=== PATIENT | male | born 1965 | race African-American/Black ===

== ENCOUNTER 2016-04-30 20:27 | Inpatient (IN) | payer SELFPAY ==
--- NOTE | ~2016-04-30 | DS ---
Discharge Summary [facility] [address] [place]. [address] NAME: SHAYNA ROGERS : 61 STATUS : ADM IN [facility]#: [id number] AGE: 50 ADM/REG DATE : 04/30/16 MR#: [id number] REPORT SERV DATE: 05/05/16 DICTATED BY: ALBAN STOLL DATE: 05/05/16 REPORT STATUS : Draft TRANSCRIBED BY: MODL DATE: 05/05/16 ADMISSION DATE: 04/30/2016 DISCHARGE DATE: PCP: [facility]. FINAL DIAGNOSES: 1. Acute gastroenteritis, resolved. 2. Dehydration, improved. 3. Status post hypokalemia. 4. Status post hypophosphatemia. 5. Hypertension, status post orthostasis. 6. Folate-deficiency anemia. 7. Gout. 8. Morbid obesity. DIAGNOSTIC EXAMS: Chest x-ray showing no acute cardiopulmonary abnormality, stable mild elevation of the right hemidiaphragm. CAT scan of the abdomen and pelvis showing no acute abdominal or pelvic pathology. No imaging explanation for the reported vomiting. No bowel obstruction pattern. Nonobstructing bilateral nephrolithiasis. Small bladder calculus. Normal appendix, right lower quadrant. Stable severe degenerative disc disease, L4-L5. HOSPITAL COURSE: Please refer to the H and P done by Dr. Marcelo dated on 04/30/2016. Briefly, this is a 50-year-old male who comes in for weakness. The patient was recently discharged with gout and C. diff colitis. The patient lives by himself but has financial problem. His friend or sister had turned on his power but afterwards he did not pay for the bill and power ran out. Two days ago, the sister visited him and the house was cold, old food in the fridge, and the patient was having nausea and vomiting and increasing weakness. The patient was then brought to the emergency room, admitted by Dr. Marcelo and he was found to be dehydrated and was given some fluids and we checked his stool and that was negative for any C. diff. We believe that he probably ate spoiled food and caused him to have an acute gastroenteritis and he slowly improved with hydration and correction of his multiple electrolyte abnormalities. The patient was initially orthostatic that improved with hydration, and we have to even increase his Norvasc to control his blood pressure. We got PT involved and they recommended the patient to go to rehab. We tried [facility] but because he does not have any money or insurance, we were hoping that they would jami him, but they were not able to. We are going to try [facility] but the chances of which is poor and if that does not happen then the patient will need to go home with Home Health and Home PT. The patient will be following up with the [facility] in one to two weeks and he will be on the following medications: Allopurinol 100 mg a day, Norvasc 10 mg a day, folic acid 1 mg a day, multivitamin once a day. He was advised to be careful with what he eats. He said that he is going to be able to find some assistance. The watch caser is working with him as well to help him out financially but there is only so much that we can do but we will try. If he does not turn his life around chances of him coming back to the hospital is quite high. This has been explained to him. He understood the plan. Discharge Summary [address] [address] NAME: SHAYNA ROGERS : 61 STATUS : ADM IN PAT#: [id number] AGE: 50 ADM/REG DATE : 04/30/16 MR#: [id number] REPORT SERV DATE: 05/05/16 DICTATED BY: ALBAN STOLL. DATE: 05/05/16 REPORT STATUS : Draft TRANSCRIBED BY: KAVEH DATE: 05/05/16 TIME SPENT: 35 minutes. KARTHIK/KAVEH Alban Stoll M.D. / [id number] CC: Alban Stoll M.D.
--- NOTE | ~2016-04-30 | HP ---
History And Physical [place] [id number] [facility] [place]. [address] NAME: SHAYNA VILLARREAL : 61 STATUS : ADM [facility] PAT#: [id number] AGE: 50 ADM/REG DATE : 04/30/16 MR#: [id number] REPORT SERV DATE: 05/01/16 DICTATED BY: SAWYER SWAIN DATE: 05/01/16 REPORT STATUS : Draft TRANSCRIBED BY: MODAyana DATE: 05/01/16 DATE OF ADMISSION: 04/30/2016 CHIEF COMPLAINT: Generalized weakness nausea, vomiting, and chills. He also had diarrhea. HISTORY OF PRESENT ILLNESS: This is a 50-year-old male with a history of recent Clostridium difficile colitis, who presents to the emergency room at [facility] with the above-mentioned complaint. History is obtained from the patient, his sister who was at bedside, and reviewing data available on the [place] system. According to Mr. Villarreal and the family, he had been doing well since his discharge from this hospital after his admission for Clostridium difficile colitis and diarrhea. Since then, he has had one or two days of intermittent diarrhea which according to him was nothing like what it was when he had C. diff colitis. He had the last one about a week or so ago. His sister had called him about two days ago, and he sounded different, and she went to find him at home where he had no electricity, the house was ice cold with no heat. He had old food in the fridge which was not running due to no power. Apparently, there were some financial issue with the electric company. She also found that he had nausea with vomiting. He had not been able to keep anything down for the last couple of days, and decided to bring him to the emergency room to be evaluated. In the emergency room, initial workup revealed he continued to have nausea and vomiting requiring intravenous antiemetics. He had urinary tract infection with severe electrolyte abnormalities as well and met criteria for sepsis. He also had orthostatic hypotension. Hospitalist Service is asked to admit him for further evaluation and treatment. At the time of my evaluation, Mr. Villarreal denied any chest pain, palpitations, or orthopnea. He had no cough, hemoptysis, night sweats, or weight loss. He denied any recent falls, loss of consciousness. He did have some chills in the last 24-36 hours, but has not recorded any temperatures. He did have nausea, vomiting which was essentially basically what he ate or bilious. No history of hematemesis, hematochezia, or hematuria. He did have one or two episodes of diarrhea which appeared to be not related to all of this, similar to what he had when he had previous colitis. No other history of recent travel or exposures other than those mentioned above at least since his discharge from here. PAST MEDICAL HISTORY: Significant for history of recent Clostridium difficile colitis and admission as an inpatient to treat it. SOCIAL HISTORY: He does not smoke, drink, or use recreational drugs. FAMILY HISTORY: Noncontributory. MEDICATIONS: At home were reviewed by me in the chart today and reordered by me. REVIEW OF SYSTEMS: As in history of present illness. All other systems were reviewed in detail and are quite History And Physical [address] [place] [place]. [address] NAME: SHAYNA VILLARREAL : 61 STATUS : ADM [facility] PAT#: [id number] AGE: 50 ADM/REG DATE : 04/30/16 MR#: [id number] REPORT SERV DATE: 05/01/16 DICTATED BY: SAWYER SWAIN DATE: 05/01/16 REPORT STATUS : Draft TRANSCRIBED BY: KAVEH DATE: 05/01/16 unremarkable. PHYSICAL EXAMINATION: GENERAL: This is a pleasant 50-year-old, male, who is a little sketchy on his history but was able to recall most of it. He is alert, awake, oriented to time, place, and person. HEENT: Pupils are equal, reacting to light and accommodating. External ocular muscles are intact. Membranes are moist and pink. Sclerae are nonicteric. NECK: Supple with no jugular venous distention, lymphadenopathy, or thyromegaly. LUNGS: Clear to auscultation with no wheezes, rubs, or crackles. HEART: Heart sounds were regular with no murmurs, rubs, or gallops. ABDOMEN: Soft, nontender. Bowel sounds are present. EXTREMITIES: Showed no cyanosis, clubbing, or edema. NEUROLOGIC: Grossly intact. No focal sensory or motor deficits. Higher functions appeared intact. Gait was not examined. VITAL SIGNS: His vital signs today showed temperature of 97.5, pulse 99, respirations 18 a minute, and blood pressure upon arrival was 138/94, oxygen saturations were 100% on 2-3 L via nasal cannula. LABORATORY DATA: Reviewed on the [place] system showed a sodium of 139, potassium 2.8, chloride 98, and CO2 of 23, BUN was 6 with a creatinine of 1.26 and GFR was 76. His glucose was 103. His albumin was 2.5, lactate was 4.4. CBC showed a white blood cell count of 8100, hemoglobin was 11.6, hematocrit 36.4 and platelet count was 384,000. Influenza A and B were negative today, and urinalysis showed trace ketones, large leukocyte esterase, nitrite was negative with 163 WBCs and occasional bacteria. Films of the CT scan of his abdomen pelvis were reviewed by me on the PACS today and interpreted by me. Official radiology comments were also reviewed. There is no acute pathology. There are no obstructions or other causes for vomiting and diarrhea at this point. A 12-lead EKG done in the emergency room was reviewed and interpreted by me. There is normal sinus rhythm with a rate of [address] changes. IMPRESSION: 1. Generalized weakness. 2. Nausea and vomiting. 3. Urinary tract infection. 4. Sepsis. 5. Electrolyte abnormalities. 6. Orthostatic hypotension. 7. Volume depletion. 8. Recent Clostridium difficile colitis. 9. Gout. PLAN: We will admit Mr. Villarreal to the Hospitalist Service for a 24-hour observation period. We will aggressively replete fluids, obtain cultures, and start him on empiric IV History And Physical [address] [address] NAME: SHAYNA VILLARREAL : 61 STATUS : ADM [facility] PAT#: [id number] AGE: 50 ADM/REG DATE : 04/30/16 MR#: [id number] REPORT SERV DATE: 05/01/16 DICTATED BY: SAWYER SWAIN DATE: 05/01/16 REPORT STATUS : Draft TRANSCRIBED BY: KAVEH DATE: 05/01/16 antibiotics for his urinary tract infection and sepsis. We will check procalcitonin level. We will replace his electrolytes and follow this with chemistry repeated in the morning. We will also repeat a CBC and place him on electrolyte replacement protocol. For his sepsis, we will again, go ahead and replace volume per protocol and IV antibiotics. Please see orders for details. He will be on unfractionated heparin for DVT prophylaxis while here as well. I have discussed the above plans with the patient. His questions were answered, and he is agreeable to the above recommendations. Hospitalist Service will be following him during his stay here. /KAVEH Sawyer Swain M.D. / [id number] CC: Surya Castro M.D.
[~2016-04-30 20:27] MED LIST: CORICIDIN HBP PO; FOLIC PO; MULTIVIT/MIN PO; NORV5 PO; P10 PO; ZINC OTC PO; vancomycin PO
[2016-04-30 20:54] LABS: BASOPHILS 0.1 %; BASOPHILS ABSOLUTE 0.01 10/3/uL (0.0-0.16); EOSINOPHILS 0 %; ER CBC TAT 0 Hrs 07 Mins; IMMATURE GRANULOCYTES 0.5 %; IMMATURE GRANULOCYTES ABSOLUTE 0.04 10/3/uL (0.0-0.11); LYMPHOCYTES 15.7 %; LYMPHOCYTES ABSOLUTE 1.27 10/3/uL (0.67-4.30); MEAN CORPUSCULAR VOLUME 87.7 fL (80-100); MEAN PLATELET VOLUME 9.7 fL (9.2-13.0); MONOCYTES 7.6 %; MONOCYTES ABSOLUTE 0.62 10/3/uL (0.21-1.20); NEUTROPHILS 76.1 %; NEUTROPHILS ABSOLUTE 6.17 10/3/uL (2.02-8.40); RBC DISTRIBUTION WIDTH 15.1 % (12.0-16.0); WHITE BLOOD CELLS 8.1 10/3/uL (4.5-10.5)
[2016-04-30 20:57] LABS: HEMATOCRIT 36.4 % (40.0-51.0); HEMOGLOBIN 11.6 g/dL (13.6-17.8); MANUAL DIFF NO %; MEAN CORPUS HGB CONC 31.9 g/dL (32.0-36.0); PLATELET COUNT 384 10/3/uL (150-400); RED CELL COUNT 4.15 10/6/uL (4.7-6.1)
[2016-04-30 21:02] LABS: INTERNATIONAL NORMAL RATI 1.1 UNITS (-); PARTIAL THROMBO TIME 28.6 SEC (22.5-37.2); PROTIME (NOT ORD) 14.3 SEC (12.0-14.5)
[2016-04-30 21:10] LABS: CREATININE 1.26 MG/DL (0.70-1.30); TOTAL BILIRUBIN 0.4 MG/DL (0-1.2)
[2016-04-30 21:10] LABS: INFLUENZA A SCREEN NEGATIVE (NEGATIVE); INFLUENZA B SCREEN NEGATIVE (NEGATIVE); LACTATE 4.4 MMOL/L (0.3-2.4)
[2016-04-30 21:11] LABS: A/G RATIO 0.4 (0.7-1.9); ALBUMIN 2.5 G/DL (3.5-5.0); CALCIUM, SERUM 9.4 MG/DL (8.5-10.4); GLOBULIN 5.6 G/DL (2.5-4.1); POTASSIUM, SERUM 2.8 MMOL/L (3.5-5.3); TOTAL PROTEIN 8.1 G/DL (6.0-8.5); TROPONIN I 0.02 NG/ML (<0.05)
[2016-04-30 21:37] LABS: ASCORBIC ACID (UR NOT ORDER) NEG (NEG); BILIRUBIN, URINE NEGATIVE (NEG); ER URINALYSIS TAT 0 Hrs 16 Mins; KETONE, URINE TRACE MG/DL (NEG); LEUKOCYTE ESTERASE(NOT OR LARGE (NEG); NITRITE (URINE) NEG (NEG); WBC (NOT ORDERED) (RFLEX) 163 (0-5)
[2016-04-30 21:37] LABS: MEMORIAL CHEMISTRY 0.05
[2016-04-30] MEDS ORDERED: CENTRUM PO (21:40)
[2016-04-30] MEDS ORDERED: FOLIC PO (21:40)
[2016-04-30] MEDS ORDERED: NORV10 PO (21:40)
[2016-05-01 02:27] LABS: BASOPHILS 0.1 %; BASOPHILS ABSOLUTE 0.01 10/3/uL (0.0-0.16); EOSINOPHILS 0 %; HEMATOCRIT 34.3 % (40.0-51.0); HEMOGLOBIN 10.9 g/dL (13.6-17.8); IMMATURE GRANULOCYTES 0.4 %; IMMATURE GRANULOCYTES ABSOLUTE 0.04 10/3/uL (0.0-0.11); LYMPHOCYTES 22.9 %; LYMPHOCYTES ABSOLUTE 2.35 10/3/uL (0.67-4.30); MEAN CORPUS HGB CONC 31.8 g/dL (32.0-36.0); MEAN CORPUSCULAR HEMOGLOB 27.9 pg (26.0-34.0); MEAN CORPUSCULAR VOLUME 87.7 fL (80-100); MONOCYTES 7.7 %; MONOCYTES ABSOLUTE 0.79 10/3/uL (0.21-1.20); NEUTROPHILS 68.9 %; NEUTROPHILS ABSOLUTE 7.07 10/3/uL (2.02-8.40); PLATELET COUNT 372 10/3/uL (150-400); RBC DISTRIBUTION WIDTH 15.3 % (12.0-16.0); RED CELL COUNT 3.91 10/6/uL (4.7-6.1); WHITE BLOOD CELLS 10.3 10/3/uL (4.5-10.5)
[2016-05-01 02:29] LABS: MANUAL DIFF NO %
[2016-05-01 02:47] LABS: BUN (BLOOD UREA NITROGEN) 6 MG/DL (6-23); CALCIUM, SERUM 8.7 MG/DL (8.5-10.4); CHLORIDE, SERUM 97 MMOL/L (96-112); CO2 (CARBON DIOXIDE) 27 MMOL/L (24-34); CREATININE 0.95 MG/DL (0.70-1.30); GFR AFRICAN AMERICAN 106 ML/MIN (>=60); GFR NON AFRICAN AMERICAN 92 ML/MIN (>=60); PHOSPHORUS, SERUM 1.8 MG/DL (2.5-4.5); SODIUM, SERUM 139 MMOL/L (135-148)
[2016-05-01 02:52] LABS: GLUCOSE, SERUM 74 MG/DL (60-99)
[2016-05-02 05:34] LABS: BASOPHILS 0.1 %; BASOPHILS ABSOLUTE 0.01 10/3/uL (0.0-0.16); EOSINOPHILS 0.4 %; EOSINOPHILS ABSOLUTE 0.03 10/3/uL (0.0-0.53); HEMOGLOBIN 9.1 g/dL (13.6-17.8); IMMATURE GRANULOCYTES 0.3 %; IMMATURE GRANULOCYTES ABSOLUTE 0.02 10/3/uL (0.0-0.11); LYMPHOCYTES 31.8 %; MEAN CORPUS HGB CONC 32.2 g/dL (32.0-36.0); MEAN CORPUSCULAR VOLUME 87.1 fL (80-100); MEAN PLATELET VOLUME 9.9 fL (9.2-13.0); MONOCYTES 12.5 %; MONOCYTES ABSOLUTE 0.94 10/3/uL (0.21-1.20); NEUTROPHILS 54.9 %; NEUTROPHILS ABSOLUTE 4.14 10/3/uL (2.02-8.40); PLATELET COUNT 294 10/3/uL (150-400); RBC DISTRIBUTION WIDTH 15.6 % (12.0-16.0); RED CELL COUNT 3.25 10/6/uL (4.7-6.1); WHITE BLOOD CELLS 7.5 10/3/uL (4.5-10.5)
[2016-05-02 05:42] LABS: HEMATOCRIT 28.3 % (40.0-51.0); MANUAL DIFF NO %
[2016-05-02 05:54] LABS: BUN (BLOOD UREA NITROGEN) 3 MG/DL (6-23); CALCIUM, SERUM 8.4 MG/DL (8.5-10.4); CHLORIDE, SERUM 103 MMOL/L (96-112); CO2 (CARBON DIOXIDE) 27 MMOL/L (24-34); CREATININE 0.83 MG/DL (0.70-1.30); GFR AFRICAN AMERICAN 117 ML/MIN (>=60); GFR NON AFRICAN AMERICAN 101 ML/MIN (>=60); GLUCOSE, SERUM 88 MG/DL (60-99); PHOSPHORUS, SERUM 1.4 MG/DL (2.5-4.5); SODIUM, SERUM 140 MMOL/L (135-148)
[2016-05-02 05:57] LABS: ALBUMIN 1.9 G/DL (3.5-5.0); POTASSIUM, SERUM 2.9 MMOL/L (3.5-5.3)
[2016-05-02 08:23] LABS: POTASSIUM, SERUM 3.4 MMOL/L (3.5-5.3)
[2016-05-03 06:58] LABS: BASOPHILS 0.1 %; BASOPHILS ABSOLUTE 0.01 10/3/uL (0.0-0.16); EOSINOPHILS 0.7 %; EOSINOPHILS ABSOLUTE 0.05 10/3/uL (0.0-0.53); HEMATOCRIT 26.8 % (40.0-51.0); HEMOGLOBIN 8.5 g/dL (13.6-17.8); IMMATURE GRANULOCYTES 0.3 %; IMMATURE GRANULOCYTES ABSOLUTE 0.02 10/3/uL (0.0-0.11); LYMPHOCYTES 34.6 %; LYMPHOCYTES ABSOLUTE 2.48 10/3/uL (0.67-4.30); MANUAL DIFF NO %; MEAN CORPUS HGB CONC 31.7 g/dL (32.0-36.0); MEAN CORPUSCULAR HEMOGLOB 27.8 pg (26.0-34.0); MEAN CORPUSCULAR VOLUME 87.6 fL (80-100); MEAN PLATELET VOLUME 9.4 fL (9.2-13.0); MONOCYTES 13.1 %; MONOCYTES ABSOLUTE 0.94 10/3/uL (0.21-1.20); NEUTROPHILS 51.2 %; NEUTROPHILS ABSOLUTE 3.66 10/3/uL (2.02-8.40); PLATELET COUNT 247 10/3/uL (150-400); RBC DISTRIBUTION WIDTH 15.8 % (12.0-16.0); RED CELL COUNT 3.06 10/6/uL (4.7-6.1); WHITE BLOOD CELLS 7.2 10/3/uL (4.5-10.5)
[2016-05-03 07:37] LABS: BUN (BLOOD UREA NITROGEN) 4 MG/DL (6-23); CALCIUM, SERUM 7.9 MG/DL (8.5-10.4); CHLORIDE, SERUM 109 MMOL/L (96-112); CO2 (CARBON DIOXIDE) 30 MMOL/L (24-34); CREATININE 0.75 MG/DL (0.70-1.30); GFR AFRICAN AMERICAN 122 ML/MIN (>=60); GFR NON AFRICAN AMERICAN 105 ML/MIN (>=60); GLUCOSE, SERUM 83 MG/DL (60-99); PHOSPHORUS, SERUM 2.8 MG/DL (2.5-4.5); POTASSIUM, SERUM 3.1 MMOL/L (3.5-5.3); SODIUM, SERUM 146 MMOL/L (135-148)
[2016-05-04 06:34] LABS: BASOPHILS 0.2 %; BASOPHILS ABSOLUTE 0.02 10/3/uL (0.0-0.16); EOSINOPHILS 0.7 %; EOSINOPHILS ABSOLUTE 0.06 10/3/uL (0.0-0.53); HEMATOCRIT 27.6 % (40.0-51.0); HEMOGLOBIN 8.7 g/dL (13.6-17.8); IMMATURE GRANULOCYTES 0.3 %; IMMATURE GRANULOCYTES ABSOLUTE 0.03 10/3/uL (0.0-0.11); LYMPHOCYTES 37.2 %; LYMPHOCYTES ABSOLUTE 3.38 10/3/uL (0.67-4.30); MEAN CORPUS HGB CONC 31.5 g/dL (32.0-36.0); MEAN CORPUSCULAR HEMOGLOB 27.6 pg (26.0-34.0); MEAN CORPUSCULAR VOLUME 87.6 fL (80-100); MEAN PLATELET VOLUME 9.9 fL (9.2-13.0); MONOCYTES 13.3 %; MONOCYTES ABSOLUTE 1.21 10/3/uL (0.21-1.20); NEUTROPHILS 48.3 %; NEUTROPHILS ABSOLUTE 4.39 10/3/uL (2.02-8.40); PLATELET COUNT 274 10/3/uL (150-400); RBC DISTRIBUTION WIDTH 16.1 % (12.0-16.0); RED CELL COUNT 3.15 10/6/uL (4.7-6.1); WHITE BLOOD CELLS 9.1 10/3/uL (4.5-10.5)
[2016-05-04 06:38] LABS: MANUAL DIFF NO %
[2016-05-04 06:43] LABS: BUN (BLOOD UREA NITROGEN) 5 MG/DL (6-23); CALCIUM, SERUM 8.2 MG/DL (8.5-10.4); CHLORIDE, SERUM 105 MMOL/L (96-112); GFR AFRICAN AMERICAN 126 ML/MIN (>=60); GFR NON AFRICAN AMERICAN 109 ML/MIN (>=60); GLUCOSE, SERUM 88 MG/DL (60-99); POTASSIUM, SERUM 3.6 MMOL/L (3.5-5.3); SODIUM, SERUM 143 MMOL/L (135-148)
[2016-05-04 06:45] LABS: CO2 (CARBON DIOXIDE) 24 MMOL/L (24-34)
[2016-05-05] MEDS ORDERED: Z100 PO (15:52)
== END 2016-05-05 17:40 | disposition home or self-care (01) | DRG 312 ==
LOC: ER 20:27 → 5SO 22:28
PROVIDERS: Emergency Medicine; Hospitalist; Internal Medicine; Internal Medicine Pulmonary Disease
DX: I95.1 Orthostatic hypotension (principal); N39.0 Urinary tract infection, site not specified; E83.39 Other disorders of phosphorus metabolism; D52.9 Folate deficiency anemia, unspecified; E66.01 Morbid (severe) obesity due to excess calories; E86.9 Volume depletion, unspecified; K52.9 Noninfective gastroenteritis and colitis, unspecified; M10.9 Gout, unspecified; Z23 Encounter for immunization; E86.0 Dehydration; E87.6 Hypokalemia; Z68.38 Body mass index [BMI] 38.0-38.9, adult; N21.0 Calculus in bladder; N20.0 Calculus of kidney; M51.36 Other intervertebral disc degeneration, lumbar region
CPT/HCPCS: 71010; 74176; 80048; 80053; 80069; 81001; 83605; 83690; 83735; 84100; 84132; 84145; 84484; 84550; 85025; 85610; 85730; 87040; 87045; 87046; 87046-59; 87077; 87086; 87150; 87186; 87328; 87329; 87493; 87493-59; 87804; 87899; 87899-59; 89055; 90686; 93005; 97116-GP; 97161-GP; 99285; A9270-GY; G0008; G8978-CL-GP; G8979-CI-GP